=== PATIENT | female | born 1955 | race Caucasian/White ===

== ENCOUNTER 2017-05-13 16:12 | Observation (INO) | payer BC ==
[~2017-05-13] VITALS: Ht 162.6 cm; Wt 100.0 kg
[2017-05-13] VITALS (12 sets, daily range): BP systolic 110–171; BP diastolic 73–97; PULSE 69–88; RESP 16–20; TEMP 97.4–97.7; O2SAT 96–99
[~2017-05-13 16:12] MED LIST: ALBUAER3 INH; GABA100C4 PO; LANS30 PO; LANS30CA PO; NAPR500T2 PO; TRAM50TA PO; VENL75TA PO; VENTAER INH; ZYRT10CA PO; [UNRECOGNIZED DRUG - CODE] PO
--- NOTE | 2017-05-13 16:37 | PD ---
HPI Chief Complaint: Chest Pain Time Seen by Provider: 16:29 Travel History International Travel<30 days: No Contact w/Intl Traveler<30days: No Traveled to known affect area: No History of Present Illness HPI 61-year-old female here for evaluation of chest pain, palpitations, dyspnea. Over the last couple of days patient has had intermittent episodes of palpitations. Today she experienced substernal heaviness associated with shortness of breath. She feels as though the palpitations have resolved. Heaviness is currently 2 out of 10, nonradiating. She states her symptoms were made worse by exertion. No fevers, chills, cough, or recent illness. No history of cardiac disease. There is family history of cardiac disease in her father who at the age of 69 from an VT. No paresthesias or motor deficits. No history of DVT or PE. PFSH Past Medical History Hx Anticoagulant Therapy: No Diabetes: No ?: Not Social History Alcohol Use: Yes (beer daily) Tobacco Use: No Substance Use: No Allergies-Medications (Allergen,Severity, Reaction): Coded Allergies: No Known Allergies (Unverified Adverse Reaction, Unknown, 05/13/17) Reported Meds & Prescriptions Reported Meds & Active Scripts Active Ventolin Hfa 18 GM Inh (Albuterol Sulfate) 90 Mcg/Act Aer 2 Puff INH Q4-6H PRN Lansoprazole 30 Mg Capdr 30 Mg PO DAILY Effexor (Venlafaxine HCl) 75 Mg Tab 75 Mg PO DAILY Reported Ibuprofen 200 Mg Cap 400 Mg PO DIRECTED PRN Aleve PM (Naproxen Sodium-Diphenhydramine) 220-25 Mg Tab 2 Tab PO HS PRN Cetirizine (Cetirizine HCl) 10 Mg Tab 10 Mg PO DAILY Naproxen 500 Mg Tab 500 Mg PO BID PRN Review of Systems Except as stated in HPI: all other systems reviewed are Neg Physical Exam Narrative GENERAL: Well-developed, well-nourished, comfortable, overweight, no apparent distress. SKIN: Focused skin assessment warm/dry. No rash. HEAD: Atraumatic. Normocephalic. EYES: Pupils equal and round. No scleral icterus. No injection or drainage. ENT: Mucous membranes pink and moist. NECK: Trachea midline. No JVD. CARDIOVASCULAR: Regular rate and rhythm. Distal pulses brisk and equal bilaterally. RESPIRATORY: No accessory muscle use. Clear to auscultation. Breath sounds equal bilaterally. GASTROINTESTINAL: Abdomen soft, non-tender, nondistended. MUSCULOSKELETAL: No obvious deformities. No clubbing. No cyanosis. No edema. Bilateral calves are supple, nontender. NEUROLOGICAL: Awake and alert. No obvious cranial nerve deficits. Motor grossly within normal limits. Normal speech. PSYCHIATRIC: Appropriate mood and affect; insight and judgment normal. Data Data Last Documented VS Vital Signs Date Time Temp Pulse Resp B/P (MAP) Pulse Ox O2 Delivery O2 Flow Rate FiO2 05/13/17 18:10 74 16 98 Room Air 05/13/17 17:50 110/78 (89) 05/13/17 16:16 97.7 Orders Orders Ckmb (Isoenzyme) Profile (05/13/17 16:34) Complete Blood Count With Diff (05/13/17 16:34) Comprehensive Metabolic Panel (05/13/17 16:34) D-Dimer (05/13/17 16:34) Magnesium (Mg) (05/13/17 16:34) Prothrombin Time / Inr (Pt) (05/13/17 16:34) Act Partial Throm Time (Ptt) (05/13/17 16:34) Troponin I (05/13/17 16:34) Lipase (05/13/17 16:34) Chest, Single Ap (05/13/17 16:34) Ecg Monitoring (05/13/17 16:34) Bilateral Bp Monitoring (05/13/17 16:34) Iv Access Insert/Monitor (05/13/17 16:34) Oximetry (05/13/17 16:34) Aspirin Chew (Aspirin Chew) (05/13/17 16:45) Sodium Chloride 0.9% Flush (Ns Flush) (05/13/17 16:45) Nitroglycerin Sl (Nitrostat Sl) (05/13/17 16:45) Electrocardiogram (05/13/17 ) Labs Laboratory Tests Test 05/13/17 16:55 White Blood Count 8.6 TH/MM3 Red Blood Count 5.11 MIL/MM3 Hemoglobin 14.2 GM/DL Hematocrit 43.3 % Mean Corpuscular Volume 84.8 FL Mean Corpuscular Hemoglobin 27.8 PG Mean Corpuscular Hemoglobin Concent 32.8 % Red Cell Distribution Width 12.5 % Platelet Count 267 TH/MM3 Mean Platelet Volume 9.1 FL Neutrophils (%) (Auto) 62.5 % Lymphocytes (%) (Auto) 24.2 % Monocytes (%) (Auto) 6.9 % Eosinophils (%) (Auto) 5.0 % Basophils (%) (Auto) 1.4 % Neutrophils # (Auto) 5.4 TH/MM3 Lymphocytes # (Auto) 2.1 TH/MM3 Monocytes # (Auto) 0.6 TH/MM3 Eosinophils # (Auto) 0.4 TH/MM3 Basophils # (Auto) 0.1 TH/MM3 CBC Comment DIFF FINAL Differential Comment Prothrombin Time 11.2 SEC Prothromb Time International Ratio 1.1 RATIO Activated Partial Thromboplast Time 26.8 SEC D-Dimer Quantitative (PE/DVT) 0.30 MG/L FEU Blood Urea Nitrogen 22 MG/DL Creatinine 0.87 MG/DL Random Glucose 76 MG/DL Total Protein 7.2 GM/DL Albumin 3.6 GM/DL Calcium Level 8.9 MG/DL Magnesium Level 2.4 MG/DL Alkaline Phosphatase 111 U/L Aspartate Amino Transf (AST/SGOT) 19 U/L Alanine Aminotransferase (ALT/SGPT) 22 U/L Total Bilirubin 0.3 MG/DL Sodium Level 141 MEQ/L Potassium Level 3.8 MEQ/L Chloride Level 107 MEQ/L Carbon Dioxide Level 24.7 MEQ/L Anion Gap 9 MEQ/L Estimat Glomerular Filtration Rate 66 ML/MIN Total Creatine Kinase 63 U/L Troponin I LESS THAN 0.02 NG/ML Lipase 173 U/L MDM Medical Decision Making Medical Screen Exam Complete: Yes Emergency Medical Condition: Yes Interpretation(s) EKG: Sinus, rate 79, normal axis, normal intervals, no acute ischemic abnormality. Differential Diagnosis ACS, pneumothorax, pericarditis, PE, pneumonia, dysrhythmia, metabolic abnormality Narrative Course Vital signs are within normal limits. CBC is unremarkable. CMP is unremarkable. Lipase is 173. Cardiac enzymes are negative. D-dimer is negative at 0.30. Chest x-ray: No acute disease. The patient was given a full aspirin and 1 sublingual nitroglycerin and on reassessment she states her symptoms have resolved. She has a strong family history of cardiac disease, and I believe that she should be admitted to the chest pain center for further cardiac evaluation. She is amenable to this plan. Case discussed with hospitalist Dr. Barahona who will admit the patient to his service to the chest pain center. Diagnosis Primary Impression: Chest pain Qualified Codes: R07.9 - Chest pain, unspecified Admitting Information Admitting Physician Requests: Bassem Berg MD May 13, 2017 16:37
[2017-05-13] MEDS ORDERED: NITROGLYCERIN 0.4 MG SL 25 TABS/BTL SL ONE (16:45)
[2017-05-13] MEDS ORDERED: ASPIRIN 81 MG CHEW TAB PO ONE (16:45)
[2017-05-13] MEDS ORDERED: SODIUM CHLORIDE 0.9% FLUSH 10 ML FLUSH IVF PRN (16:45)
[2017-05-13 17:05] LABS: AUTOMATED NEUTROPHIL # 5.4 TH/MM3 (1.8-7.7); BASOPHIL # 0.1 TH/MM3 (0-0.2); BASOPHIL % 1.4 % (0.0-2.0); EOSINOPHIL # 0.4 TH/MM3 (0-0.4); HEMATOCRIT 43.3 % (35.0-46.0); HEMOGLOBIN 14.2 GM/DL (11.6-15.3); LYMPH % 24.2 % (9.0-44.0); LYMPHOCYTE # 2.1 TH/MM3 (1.0-4.8); MEAN CELL VOLUME 84.8 FL (80.0-100.0); MEAN CORPUSCULAR HEMOGLOBIN 27.8 PG (27.0-34.0); MEAN CORPUSCULAR HGB CONC 32.8 % (32.0-36.0); MEAN PLATELET VOLUME 9.1 FL (7.0-11.0); MONO % 6.9 % (0.0-8.0); MONOCYTE # 0.6 TH/MM3 (0-0.9); NEUT % 62.5 % (16.0-70.0); PLATELET COUNT 267 TH/MM3 (150-450); RED BLOOD COUNT 5.11 MIL/MM3 (4.00-5.30); RED CELL DISTRIBUTION WIDTH 12.5 % (11.6-17.2); WHITE BLOOD COUNT 8.6 TH/MM3 (4.0-11.0)
[2017-05-13] MEDS ORDERED: CETI10 PO (17:08)
[2017-05-13] MEDS ORDERED: NAPR1TAB98 PO (17:09)
[2017-05-13] MEDS ORDERED: IBUP200C PO (17:09)
[2017-05-13 17:14] LABS: CHLORIDE 107 MEQ/L (98-107); SODIUM (NA) 141 MEQ/L (136-145)
[2017-05-13 17:19] LABS: ALBUMIN 3.6 GM/DL (3.4-5.0); BICARBONATE 24.7 MEQ/L (21.0-32.0); CALCIUM 8.9 MG/DL (8.5-10.1); LIPASE 173 U/L (73-393)
[2017-05-13 17:20] LABS: BLOOD UREA NITROGEN 22 MG/DL (7-18); GLUCOSE,RANDOM 76 MG/DL (74-106); MAGNESIUM 2.4 MG/DL (1.5-2.5)
[2017-05-13 17:22] LABS: ALT (GPT) 22 U/L (10-53); AST (GOT) 19 U/L (15-37); CREATININE 0.87 MG/DL (0.50-1.00); GLOMERULAR FILTRATION RATE 66 ML/MIN (>89)
[2017-05-13 17:24] LABS: TOTAL BILIRUBIN ADULT 0.3 MG/DL (0.2-1.0); TOTAL PROTEIN 7.2 GM/DL (6.4-8.2)
[2017-05-13 17:25] LABS: ALKALINE PHOSPHATASE 111 U/L (45-117)
[2017-05-13 17:28] LABS: TROPONIN I LESS THAN 0.02 NG/ML (0.02-0.05)
[2017-05-13 17:37] LABS: INTERNATIONAL NORMALIZED RATIO 1.1 RATIO; PROTHROMBIN TIME - PATIENT 11.2 SEC (9.8-11.6)
--- NOTE | 2017-05-13 17:43 | RADRPT ---
EXAM DATE/TIME: 05/13/2017 17:18 [facility] COMPARISON: No previous studies available for comparison. INDICATIONS : Chest pain. MEDICAL HISTORY : None. SURGICAL HISTORY : None. ENCOUNTER: Initial ACUITY: 2 days PAIN SCORE: 5/10 LOCATION: Bilateral chest FINDINGS: A single view of the chest demonstrates the lungs to be symmetrically aerated without evidence of mas s, infiltrate or effusion. The cardiomediastinal contours are unremarkable. Osseous structures are intact. CONCLUSION: No acute disease. Ernie Rose MD FACR on May 13, 2017 at 17:40 Board Certified Radiologist. This report was verified electronically.
[2017-05-13 17:58] LABS: D-DIMER 0.3 MG/L FEU (0.00-0.50)
[2017-05-13] MEDS ORDERED: ONDANSETRON HCL 4 MG/2 ML VIAL IV PUSH PRN (18:30)
[2017-05-13] MEDS ORDERED: ACETAMINOPHEN 500 MG CPLT PO PRN (18:30)
[2017-05-13] MEDS ORDERED: SODIUM CHLORIDE 0.9% FLUSH 10 ML FLUSH IV FLUSH PRN (18:30)
[2017-05-13] MEDS ORDERED: NITROGLYCERIN 0.4 MG SL 25 TABS/BTL SL PRN (18:30)
[2017-05-13] MEDS ORDERED: ALBUTEROL SULFATE 90 MCG/ACT HFA 8 GM INHALER INH PRN (18:45)
[2017-05-13 20:51] LABS: TROPONIN I LESS THAN 0.02 NG/ML (0.02-0.05)
[2017-05-13] MEDS: FAMOTIDINE 20 MG TAB PO SCH (21:20)
[2017-05-13] MEDS: SODIUM CHLORIDE 0.9% FLUSH 10 ML FLUSH IV FLUSH SCH (21:20)
[2017-05-13 23:06] LABS: TROPONIN I LESS THAN 0.02 NG/ML (0.02-0.05)
[2017-05-14] VITALS: BP 123/89; PULSE 77; RESP 20; TEMP 96.4; O2SAT 96
--- NOTE | 2017-05-14 00:20 | EKG ---
Date Performed: 05/13/2017 Time Performed: 22:23:12 PTAGE: 61 years EKG: Sinus rhythm NORMAL ECG PREVIOUS TRACING : 05/13/2017 20.02 Since the prior tracing, there has been no significant galo DOCTOR: Kenneth Fowler Interpretating Date/Time 05/14/2017 00:18:57
--- NOTE | 2017-05-14 00:26 | EKG ---
Date Performed: 05/13/2017 Time Performed: 20:02:31 PTAGE: 61 years EKG: Sinus rhythm NORMAL ECG PREVIOUS TRACING : 05/13/2017 16.31 Since the prior tracing, there has been no significant galo DOCTOR: Kenneth Fowler Interpretating Date/Time 05/14/2017 00:25:15
--- NOTE | 2017-05-14 00:38 | EKG ---
Date Performed: 05/13/2017 Time Performed: 16:31:59 PTAGE: 61 years EKG: Sinus rhythm NORMAL ECG NO PREVIOUS TRACING DOCTOR: Kenneth Fowler Interpretating Date/Time 05/14/2017 00:37:36
[2017-05-14 04:00] VITALS: BP 113/72; PULSE 72; RESP 20; TEMP 96.4; O2SAT 96
[2017-05-14 08:00] VITALS: BP 153/74; PULSE 71; PULSE 74; RESP 18; TEMP 98.3; O2SAT 96
[2017-05-14] MEDS: SODIUM CHLORIDE 0.9% FLUSH 10 ML FLUSH IV FLUSH SCH (08:45)
[2017-05-14] MEDS: FAMOTIDINE 20 MG TAB PO SCH (08:46)
--- NOTE | 2017-05-14 08:50 | HHI.HP ---
[facility] Jeff Otto MD Admission Diagnosis Chest pain Diagnoses: (1) Chest pain Chief Complaint: Chest pain Travel History International Travel<30 Days: No Contact w/Intl Traveler <30 Da: No Traveled to Known Affected Are: No History of Present Illness This is a pleasant 61-year-old female patient with no known medical history who presented to the ED with complaints of chest pain. Patient states that her heart has been "feeling a regular"for the past three days, states that her heart will race and then it will slow down immediately a different times a day. Patient states that it worsens with exertion and better at rest. She states that these occurrences happen at random times during the day. She characterizes presentation as pressure-like in nature, she states that these occur in her midsternal chest. Denies any radiation. Denies any associated nausea, vomiting, diaphoresis or shortness of breath. She denies any recent illness including fever, chills, abdominal pain, nausea, vomiting, diarrhea or dysuria. She does not follow with a cost manager. States that she underwent a stress test in her 30s for this similar complaints of palpitations which was reportedly negative. She does follow with her primary care doctor on a yearly basis. Denies any history of tobacco use. Does have a significant maternal medical history of DC at the age of sixty[age]nine. Review of Systems Constitutional: DENIES: Fever, Chills Eyes: DENIES: Blurred vision, Diplopia Respiratory: DENIES: Cough, Sputum production, Shortness of breath Cardiovascular: COMPLAINS OF: Chest pain, Palpitations Gastrointestinal: DENIES: Abdominal pain, Black stools, Bloody stools, Constipation, Diarrhea, Nausea, Vomiting Musculoskeletal: DENIES: Joint pain Integumentary: DENIES: Abnormal pigmentation Hematologic/lymphatic: DENIES: Bruising Immunologic/allergic: DENIES: Eczema Psychiatric: DENIES: Anxiety Except as stated in HPI: all other systems reviewed are Neg Past Family Social History Past Medical History Asthma Depression GERD Past Surgical History Denies any previous surgeries. Reported Medications Active Ventolin Hfa 18 GM Inh (Albuterol Sulfate) 90 Mcg/Act Aer 2 Puff INH Q4-6H PRN Lansoprazole 30 Mg Capdr 30 Mg PO DAILY Effexor (Venlafaxine HCl) 75 Mg Tab 75 Mg PO DAILY Reported Ibuprofen 200 Mg Cap 400 Mg PO DIRECTED PRN Aleve PM (Naproxen Sodium-Diphenhydramine) 220-25 Mg Tab 2 Tab PO HS PRN Cetirizine (Cetirizine HCl) 10 Mg Tab 10 Mg PO DAILY Naproxen 500 Mg Tab 500 Mg PO BID PRN Allergies: Coded Allergies: No Known Allergies (Unverified Allergy, Unknown, 05/13/17) Active Ordered Medications Current Medications Medications (Trade) Dose Ordered Sig/Noble Route Start Time Stop Time Status Last Admin (NS Flush) 2 ml UNSCH PRN IV FLUSH 05/13/17 18:30 (NS Flush) 2 ml BID IV FLUSH 05/13/17 21:00 05/13/17 21:20 (Tylenol) 500 mg Q4H PRN PO 05/13/17 18:30 (Zofran Inj) 4 mg Q6H PRN IV PUSH 05/13/17 18:30 (Nitrostat Sl) 0.4 mg Q5M PRN SL 05/13/17 18:30 (Proair Hfa Inh) 2 puff BID PRN INH 05/13/17 18:45 (ZyrTEC) 10 mg DAILY PO 05/14/17 09:00 (Pepcid) 20 mg BID PO 05/13/17 21:00 05/13/17 21:20 (Effexor Xr) 75 mg DAILY PO 05/14/17 09:00 (Pneumovax-23 Inj) 25 mcg ONCE ONCE IM 05/14/17 10:00 05/14/17 10:01 Family History Paternal medical history significant for DC at the age of sixty-nine. Maternal medical history significant for cervical cancer, at the age of forty-four. Paternal grandmother at the age of sixty-nine of an DC. Social History Denies any current or previous tobacco use. Does admit to drinking two glasses of wine daily. Denies any illicit drug use. Physical Exam Vital Signs Vital Signs Date Time Temp Pulse Resp B/P (MAP) Pulse Ox O2 Delivery O2 Flow Rate FiO2 05/14/17 04:00 96.4 72 20 113/72 (86) 96 05/14/17 02:36 21 05/14/17 00:00 96.4 77 20 123/89 (100) 96 05/13/17 21:22 88 05/13/17 21:15 97.4 69 20 118/73 (88) 97 05/13/17 20:58 77 16 117/75 (89) 95 05/13/17 19:47 78 18 116/73 (87) 96 Room Air 05/13/17 18:45 76 16 122/77 (92) 98 Room Air 05/13/17 18:30 74 16 121/74 (90) 98 Room Air 05/13/17 18:10 74 16 98 Room Air 05/13/17 17:50 77 16 110/78 (89) 98 Room Air 05/13/17 17:10 83 16 110/79 (89) 98 Room Air 05/13/17 17:06 16 05/13/17 16:46 80 16 99 Room Air 05/13/17 16:45 16 99 Room Air 05/13/17 16:44 77 16 135/79 (97) 99 Room Air 05/13/17 16:16 97.7 76 16 171/97 (121) 98 Physical Exam GENERAL: Well-nourished, well-developed patient in NAD. SKIN: Warm and dry. No rash. HEAD: Normocephalic. Atraumatic. EYES: Pupils equal and round. No scleral icterus. No injection or drainage. ENT: No nasal bleeding or discharge. Mucous membranes pink and moist. NECK: Supple. Trachea midline. CARDIOVASCULAR: Regular rate and rhythm. S1, S2 noted. No murmur appreciated. No reproducible chest pain to palpation. RESPIRATORY: No accessory muscle use. Clear to auscultation. Breath sounds equal bilaterally. GASTROINTESTINAL: Abdomen soft, non-tender, nondistended. Normoactive bowel sounds x4. MUSCULOSKELETAL: No obvious deformities. Extremities without clubbing, cyanosis , or edema. NEUROLOGICAL: Awake and alert. No obvious cranial nerve deficits. Motor grossly within normal limits. 5/5 muscle strength in bilateral upper and lower extremities. Normal speech. PSYCHIATRIC: Appropriate mood and affect; insight and judgment normal. Laboratory Laboratory Tests Test 05/13/17 16:55 05/13/17 20:16 05/13/17 22:30 White Blood Count 8.6 Red Blood Count 5.11 Hemoglobin 14.2 Hematocrit 43.3 Mean Corpuscular Volume 84.8 Mean Corpuscular Hemoglobin 27.8 Mean Corpuscular Hemoglobin Concent 32.8 Red Cell Distribution Width 12.5 Platelet Count 267 Mean Platelet Volume 9.1 Neutrophils (%) (Auto) 62.5 Lymphocytes (%) (Auto) 24.2 Monocytes (%) (Auto) 6.9 Eosinophils (%) (Auto) 5.0 Basophils (%) (Auto) 1.4 Neutrophils # (Auto) 5.4 Lymphocytes # (Auto) 2.1 Monocytes # (Auto) 0.6 Eosinophils # (Auto) 0.4 Basophils # (Auto) 0.1 CBC Comment DIFF FINAL Differential Comment Prothrombin Time 11.2 Prothromb Time International Ratio 1.1 Activated Partial Thromboplast Time 26.8 D-Dimer Quantitative (PE/DVT) 0.30 Blood Urea Nitrogen 22 Creatinine 0.87 Random Glucose 76 Total Protein 7.2 Albumin 3.6 Calcium Level 8.9 Magnesium Level 2.4 Alkaline Phosphatase 111 Aspartate Amino Transf (AST/SGOT) 19 Alanine Aminotransferase (ALT/SGPT) 22 Total Bilirubin 0.3 Sodium Level 141 Potassium Level 3.8 Chloride Level 107 Carbon Dioxide Level 24.7 Anion Gap 9 Estimat Glomerular Filtration Rate 66 Total Creatine Kinase 63 51 49 Troponin I LESS THAN 0.02 LESS THAN 0.02 LESS THAN 0.02 Lipase 173 Result Diagram: 05/13/17 1655 05/13/17 1655 Imaging Last Impressions Chest X-Ray 05/13/17 1634 Signed Impressions: Service Date/Time: Saturday, May 13, 2017 17:18 - CONCLUSION: No acute disease. Ernie Rose MD FACR Septic Shock Reassessment Septic shock perfusion: reassessment completed Caprini VTE Risk Assessment Caprini VTE Risk Assessment: Mod/High Risk (score >= 2) Caprini Risk Assessment Model Point Value = 1 Point Value = 2 Point Value = 3 Point Value = 5 Age 41-60 Minor surgery BMI > 25 kg/m2 Swollen legs Varicose veins or History of unexplained or recurrent spontaneous Oral contraceptives or hormone replacement Sepsis (< 1 month) Serious lung disease, including pneumonia (< 1 month) Abnormal pulmonary function Acute myocardial infarction Congestive heart failure (< 1 month) History of inflammatory bowel disease Medical patient at bed rest Age 61-74 Arthroscopic surgery Major open surgery (> 45 min) Laparoscopic surgery (> 45 min) Malignancy Confined to bed (> 72 hours) Immobilizing plaster cast Central venous access Age >= 75 History of VTE Family history of VTE Factor V Leiden Prothrombin [id number] Lupus anticoagulant Anticardiolipin antibodies Elevated serum homocysteine Heparin-induced thrombocytopenia Other congenital or acquired thrombophilia Stroke (< 1 month) Elective arthroplasty Hip, pelvis, or leg fracture Acute spinal cord injury (< 1 month) Prophylaxis Regimen Total Risk Factor Score Risk Level Prophylaxis Regimen 0-1 Low Early ambulation 2 Moderate Order ONE of the following: *Sequential Compression Device (SCD) *Heparin 5000 units SQ BID 3-4 Higher Order ONE of the following medications: *Heparin 5000 units SQ TID *Enoxaparin/Lovenox 40 mg SQ daily (WT < 150 kg, CrCl > 30 mL/min) *Enoxaparin/Lovenox 30 mg SQ daily (WT < 150 kg, CrCl > 10-29 mL/min) *Enoxaparin/Lovenox 30 mg SQ BID (WT < 150 kg, CrCl > 30 mL/min) AND/OR *Sequential Compression Device (SCD) 5 or more Highest Order ONE of the following medications: *Heparin 5000 units SQ TID (Preferred with Epidurals) *Enoxaparin/Lovenox 40 mg SQ daily (WT < 150 kg, CrCl > 30 mL/min) *Enoxaparin/Lovenox 30 mg SQ daily (WT < 150 kg, CrCl > 10-29 mL/min) *Enoxaparin/Lovenox 30 mg SQ BID (WT < 150 kg, CrCl > 30 mL/min) AND *Sequential Compression Device (SCD) Assessment and Plan Problem List: (1) Chest pain ICD Code: R07.9 - Chest pain, unspecified Status: Acute Plan: Patient has been admitted to the chest pain center for observation. Serial EKGs and serial troponins have been ordered for ruling out ACS purposes. Serial troponins flat. EKG reviewed showing normal sinus rhythm with controlled heart rate, no ST changes to indicate ischemia. Chest pain and palpitations have resolved at this time. Chest x-ray reviewed showing no acute cardiopulmonary disease. CBC and BMP reviewed, essentially unremarkable. Vital signs are stable. Patient received aspirin and nitroglycerin in the ED. Nitroglycerin available when necessary as needed. Will add lipid panel to labs. Follow-up. Supplemental O2 as needed, patient is comfortable on room air Patient will undergo a nuclear cardiac stress test to further rule out any ischemia, further hospitalization and plan will depend on nuclear results. Continue to follow. Keep nothing by mouth. Patient is stable at this time and agreeable to the plan. (2) Depression ICD Code: F32.9 - Major depressive disorder, single episode, unspecified Plan: Continue home medications. Supportive care. DVT prophylaxis: SCDs. Problem Qualifiers (1) Chest pain: Qualified Codes: R07.9 - Chest pain, unspecified Ning Posadas May 14, 2017 08:50
[2017-05-14] MEDS ORDERED: VENLAFAXINE HCL XR 75 MG CAP PO SCH (09:00)
[2017-05-14] MEDS ORDERED: CETIRIZINE HCL 10 MG TAB PO SCH (09:00)
[2017-05-14] MEDS ORDERED: PNEUMOCOCCAL POLYVALENT INJ 25 MCG/0.5 ML SYR IM ONE (10:00)
[2017-05-14 12:01] LABS: CHOLESTEROL/ HDL RATIO 4.75 RATIO; HDL CHOLESTEROL 42.7 MG/DL (40.0-60.0)
[2017-05-14] MEDS ORDERED: REGADENOSON INJ 0.4 MG/5 ML SYR IV ONE (12:51)
--- NOTE | 2017-05-14 13:58 | RADRPT ---
EXAM DATE/TIME: 05/14/2017 11:45 [facility] COMPARISON: No previous studies available for comparison. INDICATIONS : Chest pain. DOSE: 35.2 mCi Tc99m Myoview at stress. 11.2 mCi Tc99m Myoview at rest. 0.4 mg Lexiscan STRESS SYMPTOMS: Shortness of breath. EJECTION FRACTION: 64% MEDICAL HISTORY : Gastroesophageal reflux disease. SURGICAL HISTORY : None. ENCOUNTER: Initial ACUITY: 1 day PAIN SCALE: 2/10 LOCATION: Substernal chest TECHNIQUE: The patient underwent pharmacologic stress with infusion of prescribed dose. Continuous ECG tracing was monitored during stress. Gated SPECT imaging was performed after stress and conventional SPECT i maging was performed at rest. The examination was performed on a SPECT/CT scanner, both attenuation and non-corrected datasets were reviewed. FINDINGS: DISTRIBUTION: The maximum perfused segment at stress is in the septal wall. PERFUSION STUDY: The pattern of perfusion at stress is within normal limits. GATED STUDY: There is intact wall motion and thickening without hypokinetic or dyskinetic segments. CONCLUSION: No focal wall motion abnormalities or reversible perfusion defects. RISK CATEGORY: 1- Low Risk. Alfred Cohen MD on May 14, 2017 at 13:54 Board Certified Radiologist. This report was verified electronically.
[2017-05-14 14:46] VITALS: O2SAT 96
[2017-05-14 15:00] VITALS: PULSE 79
--- NOTE | 2017-05-14 15:19 | TR ---
Date Performed: 05/14/2017 Time Performed: 12:18:11 DOCTOR: Familia De La Rosa DRUG LIST: CLINICAL HISTORY: CHEST PAIN REASON FOR TEST: REASON FOR ENDING: OBSERVATION: CONCLUSION: Lexiscan stress test was performed under standard four minute protocol. Radionuclid e was injected one minute prior to ending the test. No electrocardiographic abormalities were present to suggest ischemia. Nuclear imaging and interpretation are pending. COMMENTS:
--- NOTE | 2017-05-14 15:48 | HHI.DCPOC ---
Discharge Care Plan Diagnosis: (1) Chest pain Goals to Promote Your Health * To prevent worsening of your condition and complications * To maintain your health at the optimal level Directions to Meet Your Goals Take your medications as prescribed Follow your dietary instruction Follow activity as directed Keep your appointments as scheduled Take your immunizations and boosters as scheduled If your symptoms worsen call your PCP, if no PCP go to Urgent Care Center or Emergency Room Smoking is Dangerous to Your Health. Avoid second hand smoke Call the 24-hour hour crisis hotline for domestic abuse at Ning Posadas May 14, 2017 15:48
[2017-05-14] MEDS ORDERED: ATOR40TA16 PO (15:50)
[2017-05-14 17:20] VITALS: BP 136/71; PULSE 75; RESP 18; TEMP 97.7; O2SAT 97
[2017-05-14] MEDS ORDERED: ATORVASTATIN 40 MG TAB PO SCH (21:00)
== END 2017-05-14 17:23 | disposition home or self-care (01) ==
LOC: PHED 16:12 → PHEDA 18:19 → PH3B 21:06
PROVIDERS: ADMIT Hospitalist; ATTEND Hospitalist
DX: R07.9 Chest pain, unspecified (principal); J45.909 Unspecified asthma, uncomplicated; R00.2 Palpitations; R06.00 Dyspnea, unspecified; K21.9 Gastro-esophageal reflux disease without esophagitis; R06.02 Shortness of breath; F32.9 Major depressive disorder, single episode, unspecified; Z82.49 Family history of ischemic heart disease and other diseases of the circulatory system; Z23 Encounter for immunization
CPT/HCPCS: 71045; 78452; 80053; 80061; 82550; 83690; 83735; 84484; 85025; 85379; 85610; 85730; 90471; 90732; 93005; 93017; 99285; A9502; G0378; J2785; G0009

== ENCOUNTER 2017-09-08 11:04 | Inpatient (IN) | END 2017-09-09 19:12 | disposition home or self-care (01) | DRG 195 | DX: J18.9 Pneumonia, unspecified organism (principal); F32.9 Major depressive disorder, single episode, unspecified; R09.02 Hypoxemia; J45.909 Unspecified asthma, uncomplicated; E78.00 Pure hypercholesterolemia, unspecified; K21.9 Gastro-esophageal reflux disease without esophagitis; M54.30 Sciatica, unspecified side; M19.90 Unspecified osteoarthritis, unspecified site; F41.9 Anxiety disorder, unspecified ==